=== PATIENT | male | born 1985 | race Caucasian/White ===

== ENCOUNTER → 2017-09-04 | Outpatient (CLI) | payer OTHER ==
[~2017-09-04] VITALS: Ht 188 cm; Wt 89.1 kg
[~2017-09-04] MED LIST: PROVIGIL200 MG PO; SYNTHROID0.1 MG/TAB PO
[2017-09-04 12:56] VITALS: BP 124/68; PULSE 49
[2017-09-04 13:50] VITALS: BP 131/82; PULSE 49
== END ==
LOC: COL.RAD 12:44
DX: D44.0 Neoplasm of uncertain behavior of thyroid gland (principal)